=== PATIENT | female | born 1985 | race Caucasian/White ===

== ENCOUNTER 2018-07-25 16:59 | Emergency (ER) | payer SELFPAY ==
--- NOTE | 2018-07-25 17:17 | ER ---
Nurse's Notes [facility] Name: Ximena Rodriguez Age: 33 yrs Sex: Female : 1985 Arrival Date: 07/25/2018 Time: 17:03 Bed 13 Private MD: None, None Diagnosis: Dental caries Presentation: 07/25 17:09 Presenting complaint: Patient states: Pain in lower L molar x 2 days, denies fever, ph N/V. Transition of care: patient was not received from another setting of care. Onset of symptoms was July 25, 2018. Risk Assessment: Do you want to hurt yourself or someone else? Patient reports no desire to harm self or others. Initial Sepsis Screen: Does the patient meet any 2 criteria? No. Patient's initial sepsis screen is negative. Does the patient have a suspected source of infection? No. Patient's initial sepsis screen is negative. Care prior to arrival: Medication(s) given: Motrin, 400 mg, at 1630. 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 - Social history:: Smoking status: unknown. - Ebola Screening: : No symptoms or risks identified at this time. Screenin:52 Abuse screen: Denies threats or abuse. Denies injuries from another. Nutritional mg2 screening: No deficits noted. Tuberculosis screening: Fall Risk None identified. Assessment: 17:51 General: Appears in no apparent distress. comfortable, Behavior is calm, cooperative. mg2 Pain: Complains of pain in lower left first molar (#19) and lower left second molar (#18). Neuro: Level of Consciousness is awake, alert, obeys commands, Oriented to person, place, time. Cardiovascular: No deficits noted. Respiratory: Reports. GI: No deficits noted. : No deficits noted. EENT: Poor dentition noted. Dental caries noted in lower left first molar (#19) and lower left second molar (#18). Derm: Skin is intact, is healthy with good turgor, Skin is pink, warm \T\ dry. normal. Musculoskeletal: Circulation, motion, and sensation intact. Capillary refill < 3 seconds. Vital Signs: 17:10 BP 157 / 92; Pulse 67; Resp 18; Temp 98.6(TE); Pulse Ox 100% on R/A; Weight 99.79 kg; ph Height 5 ft. 8 in. (172.72 cm); Pain 10/10; 17:10 Body Mass Index 33.45 (99.79 kg, 172.72 cm) ph ED Course: 17:03 Patient arrived in ED. ph 17:04 None, None is Private Physician. mr 17:10 Triage completed. ph 17:11 Armani Srinivasan, ROJELIO is Primary Nurse. mg2 17:11 Juanis Levi FNP-C is [facility]. snw 17:11 Juvenal Sofia MD is Attending Physician. snw 17:11 Arm band placed on Patient placed in an exam room. ph 17:53 Patient has correct armband on for positive identification. mg2 17:53 No provider procedures requiring assistance completed. Patient did not have IV access mg2 during this emergency room visit. Administered Medications: 17:36 Drug: Clindamycin 600 mg {Note: 2 ml in left gluteus and 2 ml in right gluteus.} Route: mg2 IM; Site: left gluteus; 17:51 Follow up: Response: No adverse reaction mg2 17:36 Drug: UltRAM 50 mg Route: PO; mg2 17:51 Follow up: Response: No adverse reaction; Medication administered at discharge. mg2 Outcome: 17:17 Discharge ordered by . snw 17:53 Discharged to home ambulatory. mg2 17:53 Condition: stable 17:53 Discharge instructions given to patient, Instructed on discharge instructions, follow up and referral plans. medication usage, Demonstrated understanding of instructions, follow-up care, medications, Prescriptions given X 3. 17:54 Patient left the ED. mg2 Signatures: Juanis Levi FNP-C FNP-Rani Carmen FortuneAdriana, RN RN ph Armani Srinivasan, ROJELIO RN mg2
--- NOTE | 2018-07-25 17:17 | EDPHYS ---
Physician Documentation [facility] Name: Ximena Rodriguez Age: 33 yrs Sex: Female : 1985 Arrival Date: 07/25/2018 Time: 17:03 Bed 13 Private MD: None, None ED Physician Juvenal Sofia HPI: 07/25 17:38 This 33 yrs old Female presents to ER via Ambulatory with complaints of snw Toothache. 17:38 The patient presents with broken tooth/teeth, pain, redness. The problem is located in snw the lower left first molar (#19) and lower left second molar (#18). Onset: The symptoms/episode began/occurred suddenly, 2 day(s) ago, and became persistent. Duration: The symptoms are continuous. Associated signs and symptoms: The patient has no apparent associated signs or symptoms. Severity of symptoms: At their worst the symptoms were moderate, severe. It is unknown whether or not the patient has had similar symptoms in the past. The patient has not recently seen a physician. 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 - Social history:: Smoking status: unknown. - Ebola Screening: : No symptoms or risks identified at this time. ROS: 17:38 Constitutional: Negative for fever, chills, and weight loss, Eyes: Negative for injury, snw pain, redness, and discharge, ENT: Negative for injury and discharge, + left mandibular pain Neck: Negative for injury, pain, and swelling, Cardiovascular: Negative for chest pain, palpitations, and edema, Respiratory: Negative for shortness of breath, cough, wheezing, and pleuritic chest pain, Abdomen/GI: Negative for abdominal pain, nausea, vomiting, diarrhea, and constipation, Back: Negative for injury and pain, : Negative for injury, bleeding, discharge, and swelling, MS/Extremity: Negative for injury and deformity, Skin: Negative for injury, rash, and discoloration, Neuro: Negative for headache, weakness, numbness, tingling, and seizure. Exam: 17:37 Constitutional: This is a well developed, well nourished patient who is awake, alert, snw and in no acute distress. Head/Face: Normocephalic, atraumatic. Eyes: Pupils equal round and reactive to light, extra-ocular motions intact. Lids and lashes normal. Conjunctiva and sclera are non-icteric and not injected. Cornea within normal limits. Periorbital areas with no swelling, redness, or edema. Neck: Trachea midline, no thyromegaly or masses palpated, and no cervical lymphadenopathy. Supple, full range of motion without nuchal rigidity, or vertebral point tenderness. No Meningismus. Chest/axilla: Normal chest wall appearance and motion. Nontender with no deformity. No lesions are appreciated. Cardiovascular: Regular rate and rhythm with a normal S1 and S2. No gallops, murmurs, or rubs. Normal PMI, no JVD. No pulse deficits. Respiratory: Lungs have equal breath sounds bilaterally, clear to auscultation and percussion. No rales, rhonchi or wheezes noted. No increased work of breathing, no retractions or nasal flaring. Abdomen/GI: Soft, non-tender, with normal bowel sounds. No distension or tympany. No guarding or rebound. No evidence of tenderness throughout. Back: No spinal tenderness. No costovertebral tenderness. Full range of motion. Skin: Warm, dry with normal turgor. Normal color with no rashes, no lesions, and no evidence of cellulitis. MS/ Extremity: Pulses equal, no cyanosis. Neurovascular intact. Full, normal range of motion. Neuro: Awake and alert, GCS 15, oriented to person, place, time, and situation. Cranial nerves II-XII grossly intact. Motor strength 5/5 in all extremities. Sensory grossly intact. Cerebellar exam normal. Normal gait. Psych: Awake, alert, with orientation to person, place and time. Behavior, mood, and affect are within normal limits. 17:37 ENT: External ear(s): are unremarkable, Ear canal(s): are normal, TM's: are normal, Nose: is normal, Mouth: is normal, Posterior pharynx: is normal, Dental exam: dental caries, that is moderate, that is severe, diffusely, fractured teeth are noted, specifically the lower left second molar (#18) and lower left first molar (#19), gingival erythema. Vital Signs: 17:10 BP 157 / 92; Pulse 67; Resp 18; Temp 98.6(TE); Pulse Ox 100% on R/A; Weight 99.79 kg; ph Height 5 ft. 8 in. (172.72 cm); Pain 10/10; 17:10 Body Mass Index 33.45 (99.79 kg, 172.72 cm) ph MDM: 17:12 Patient medically screened. snw 17:36 Data reviewed: vital signs, nurses notes. Data interpreted: Pulse oximetry: on room air snw is 100 %. Interpretation: normal. Counseling: I had a detailed discussion with the patient and/or guardian regarding: the historical points, exam findings, and any diagnostic results supporting the discharge/admit diagnosis, the need for outpatient follow up, for definitive care, to return to the emergency department if symptoms worsen or persist or if there are any questions or concerns that arise at home. Special discussion: I have referred the patient to see his PCP for further evaluation of high blood pressure. Based on the history and exam findings, there is no indication for further emergent testing or inpatient evaluation. I discussed with the patient/guardian the need to see a dentist for further evaluation of the symptoms. I discussed with the patient/guardian the need to see the primary care provider for further evaluation of the symptoms. Administered Medications: 17:36 Drug: Clindamycin 600 mg {Note: 2 ml in left gluteus and 2 ml in right gluteus.} Route: mg2 IM; Site: left gluteus; 17:51 Follow up: Response: No adverse reaction mg2 17:36 Drug: UltRAM 50 mg Route: PO; mg2 17:51 Follow up: Response: No adverse reaction; Medication administered at discharge. mg2 Disposition: 17:54 Co-signature as Attending Physician, Juvenal Sofia MD. rn Disposition: 18 17:17 Discharged to Home. Impression: Dental caries. - Condition is Stable. - Discharge Instructions: Dental Abscess, Dental Pain, Diet and Dental Disease, Dental Caries, [id number], Preventive Dental Care, Adult. - Prescriptions for chlorhexidine gluconate 0.12 % Mucous Membrane mouthwash - place 15 milliliter by MUCOUS MEMBRANE route 2 times per day after brushing teeth, swish in mouth for 30 seconds then spit out; 480 milliliter. Clindamycin HCl 300 mg Oral Capsule - take 1 capsule by ORAL route every 6 hours for 10 days; 40 capsule. Diclofenac Sodium 75 mg Oral Tablet Sustained Release - take 1 tablet by ORAL route 2 times per day; 30 tablet. - Medication Reconciliation Form, Thank You Letter, Antibiotic Education, Prescription Opioid Use form. - Follow up: Private Physician; When: 1 - 2 days; Reason: Recheck today's complaints, Continuance of care, Re-evaluation by your physician. Follow up: Emergency Department; When: As needed; Reason: Worsening of condition. Signatures: Juanis Levi, BASIC COMBATANT SWIMMER-C BASIC COMBATANT SWIMMER-Csnw Juvenal Sofia MD MD rn Adriana Tamayo RN RN Armani Srinivasan RN RN [facility] [place] [facility]rections: (The following items were deleted from the chart) 17:54 17:17 07/25/2018 17:17 Discharged to Home. Impression: Dental caries. Condition is mg2 Stable. Forms are Medication Reconciliation Form, Thank You Letter, Antibiotic Education, Prescription Opioid Use. Follow up: Private Physician; When: 1 - 2 days; Reason: Recheck today's complaints, Continuance of care, Re-evaluation by your physician. Follow up: Emergency Department; When: As needed; Reason: Worsening of condition. snw
[2018-07-25] MEDS ORDERED: CLINDAMYCIN IV 150 MG/ML (4 mL) VIAL ONE (17:37)
[2018-07-25] MEDS ORDERED: TRAMADOL HCL 50 MG TAB ONE (17:39)
== END 2018-07-25 17:54 | disposition home or self-care (01) ==
LOC: ER 16:59
DX: K02.9 Dental caries, unspecified (principal)
CPT/HCPCS: 96372; 99283; S0077